=== PATIENT | female | born 1960 | race Caucasian/White ===

== ENCOUNTER 2022-04-29 13:24 | Emergency (ER) | payer OTHER, SELFPAY ==
--- NOTE | ~2022-04-29 | XR_ITS ---
EXAMINATION: XR chest 2V 04/29/2022 13:53 INDICATION: Cough for 7 days PROCEDURE: 2 view chest COMPARISON: No prior studies for comparison. FINDINGS: There is lingular atelectasis/scarring. No focal pneumonia, edema. The cardiomediastinal si lhouette is within normal limits. There are no pleural effusions. There is no pneumothorax suspecte d. IMPRESSION: 1: NO ACUTE CARDIOPULMONARY DISEASE. Reviewed, dictated and finalized at location A.
--- NOTE | 2022-04-29 13:34 | ED.URI ---
HPI - URI/Sore Throat General Chief Complaint: Upper Respiratory Infection Stated Complaint: cough Time Seen by Provider: 04/29/22 13:36 Source: patient and RN notes reviewed Mode of arrival: ambulatory Limitations: no limitations History of Present Illness HPI Narrative: 61-year-old female presents to the [facility] with complaints of a cough for 7 days. Has been doing Mucinex with no relief. Denies fevers, chest pain, abdominal pain. Related Data Home Medications Medication Instructions Recorded Confirmed amitriptyline 75 mg tablet 75 mg PO DAILY 04/29/22 04/29/22 celecoxib 200 mg capsule 200 mg PO DAILY 04/29/22 04/29/22 estradiol 0.05 mg/24 hr semiweekly 1 patch topical DIRECTED 04/29/22 04/29/22 transdermal patch gabapentin 300 mg capsule 300 mg PO DIRECTED 04/29/22 04/29/22 Allergies Allergy/AdvReac Type Severity Reaction Status Date / Time No Known Allergies Allergy Verified 04/29/22 13:42 Review of Systems Review of Systems: All systems reviewed & are unremarkable except as noted in HPI and below Constitutional: Constitutional: Reports no additional constitutional complaints, Denies chills and Denies fever(s) Eyes: Eyes: Reports no additional eye complaints ENT: Reports system reviewed and no additional complaints, except as documented Cardiovascular: Cardiovascular: Reports no additional cardiovascular complaints Respiratory: Respiratory: Reports as per HPI, Denies chest congestion, Reports cough, Denies dyspnea and Denies wheezing Gastrointestinal: Gastrointestinal: Reports no additional gastrointestinal complaints Musculoskeletal: Musculoskeletal: Reports no additional musculoskeletal complaints Integumentary/Breasts: Skin/Breast: Reports system reviewed and no additional complaints, except as docu Neurologic: Reports system reviewed and no additional complaints, except as documented Psychiatric: Psychiatric: Reports no additional psychiatric complaints Allergic/Immunologic: Allergic/Immunologic: Reports no additional allergic/immunologic complaints [facility] Past Medical History Medical History Chronic back pain Surgical History Surgical History No history of previous surgery Social History Social History (Updated 04/29/22 @ 13:42 by Rupinder Mcclain APRN) Smoking status: Never smoker Gender identity (if verbalized by the patient): Female Comments At the time of my signature, I reviewed and agree with the nursing past medical, surgical, social, and family history. There is no relevant family history pertinent to the patient complaint. Exam Const: General: healthy appearing, no acute distress and alert Nutritional Appearance: well nourished Orientation/consciousness: patient oriented x3 Limitations: no limitations HENMT: Head: normal to inspection Ears: external ears normal, TM's normal bilaterally and EAC's normal General nose exam: Normal external nose present, Normal nares present and no nasal discharge noted Face and sinus: normal facial exam Throat: posterior oropharynx normal and uvula midline Eyes: General: appearance normal, both eyes and all related structures Pupils: Equal, round and reactive pupils present Neck: Neck: normal visual inspection, lymphadenopathy noted and no meningeal signs Chest: Chest palpation & inspection: normal inspection of the chest and no tenderness Resp: Effort & Inspection: normal respiratory effort and no use of accessory muscles Auscultation: clear to auscultation bilaterally, no crackles, no rales, no rhonchi, no wheezes and diminished lung sounds bilateral in the lower lung feliz Cardio: Rate: regular rate Rhythm: regular rhythm Back/Spine/Pelvis: Cervical Spine: normal cervical lordosis Thoracic/Lumbar Spine: thoracic and lumbar spine normal to inspection Skin: General skin exam: normal color Rashes: no emely
[2022-04-29 13:36] VITALS: BP 137/78; PULSE 101; RESP 18; TEMP 37.2; O2SAT 100
[2022-04-29 13:42] VITALS: BP 137/78; PULSE 101; RESP 18; TEMP 37.2; O2SAT 100
== END 2022-04-29 14:21 | disposition home or self-care (01) ==
PROVIDERS: Emergency Provider Nurse Practitioner
DX: J40 Bronchitis, not specified as acute or chronic (principal); M19.90 Unspecified osteoarthritis, unspecified site
CPT/HCPCS: 71046; 99203; G0463